=== PATIENT | female | born 1945 | race Caucasian/White ===

== ENCOUNTER 2020-08-21 09:18 | Outpatient (CLI) | payer MEDICARE | END 2020-08-21 09:19 | disposition home or self-care (01) | LOC: CSHMRI 09:18 | PROVIDERS: ATTEND Physician Assistant | DX: R41.3 Other amnesia (principal); R51.9 Headache, unspecified; Z86.73 Personal history of transient ischemic attack (TIA), and cerebral infarction without residual deficits; R90.82 White matter disease, unspecified | CPT/HCPCS: 70553 ==

== ENCOUNTER 2021-01-13 12:26 | Outpatient (CLI) | payer MEDICARE | END 2021-01-13 12:27 | disposition home or self-care (01) | LOC: CSHMAMMO 12:26 | PROVIDERS: ATTEND Physician Assistant | DX: N63.20 Unspecified lump in the left breast, unspecified quadrant (principal); Z98.890 Other specified postprocedural states; Z90.11 Acquired absence of right breast and nipple; R92.8 Other abnormal and inconclusive findings on diagnostic imaging of breast | CPT/HCPCS: 76642; 77065; G0279 ==

== ENCOUNTER 2022-01-15 07:59 | Outpatient (CLI) | payer OTHER | END 2022-01-15 08:00 | disposition home or self-care (01) | LOC: CSHMAMMO 07:59 | PROVIDERS: ATTEND Physician Assistant | DX: Z12.31 Encounter for screening mammogram for malignant neoplasm of breast (principal); Z80.3 Family history of malignant neoplasm of breast; Z85.3 Personal history of malignant neoplasm of breast; Z98.82 Breast implant status; Z98.890 Other specified postprocedural states | CPT/HCPCS: 77063; 77067 ==